=== PATIENT | male | born 1990 | race African-American/Black ===

== ENCOUNTER 2023-11-25 14:16 | Emergency (ER) | payer SELFPAY ==
[~2023-11-25] VITALS: Ht 177.8 cm; Wt 90.0 kg
[2023-11-25 14:41] VITALS: TEMP 98.4
[2023-11-25 18:38] LABS: URINE APPEARANCE CLOUDY (CLEAR/HAZY); URINE BLOOD TRACE (NEGATIVE); URINE COLOR YELLOW (YELLOW); URINE GLUCOSE NEGATIVE (NEGATIVE); URINE KETONE TRACE (NEGATIVE); URINE NITRATE NEGATIVE (NEGATIVE); URINE PROTEIN(semi-quant) 1+ (NEGATIVE)
[2023-11-25 18:53] LABS: URINE WBC >50 /hpf (0-2)
[2023-11-25 18:54] LABS: MUCOUS PRESENT (NOT PRESENT); URINE BACTERIA OCCASIONAL /hpf (NONE SEEN); URINE CALCIUM OXALATE CRYSTAL PRESENT (NOT PRESENT)
[2023-11-25 18:55] LABS: COLLECTION METHOD CLEAN CATCH
[2023-11-25] MEDS ORDERED: cefTRIAXone 500 MG,Lidocaine PF 1% 1 ML IM ONE (19:30)
[2023-11-25] MEDS ORDERED: Doxycycline Monohydrate 100 MG CAP PO ONE (19:30)
[2023-11-25] MEDS ORDERED: DOXYCYCLINE 10100 MG PO (19:37)
[2023-11-25 20:00] VITALS: BP 156/79; PULSE 58
== END 2023-11-25 20:00 | disposition home or self-care (01) ==
LOC: COL.ER 14:16
PROVIDERS: Nurse Practitioner
DX: N34.2 Other urethritis (principal)
CPT/HCPCS: J0696